=== PATIENT | female | born 1940 | race Caucasian/White ===

== ENCOUNTER → 2019-08-28 05:27 | Day surgery (SDC) | payer BC ==
--- NOTE | 2019-08-16 12:15 | HP ---
CC: Dr. Martine Godfrey * PREOPERATIVE HISTORY AND PHYSICAL: DATE OF ADMISSION/SURGERY: This patient is scheduled for same-day surgery admission by Dr. Christine on 08/28/19. DATE OF PREOPERATIVE HISTORY AND PHYSICAL EXAMINATION: 08/16/19. ATTENDING SURGEON: Dr. Pa Christine * (dictated by Yulia Castrejon NP). CHIEF COMPLAINT: Right upper quadrant pain. HISTORY OF PRESENT ILLNESS: The patient is a 79-year-old female who presented for evaluation by Dr. Christine after undergoing an ultrasound that revealed cholelithiasis without evidence of cholecystitis. The patient initially came in to see Dr. 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 She was experiencing intermittent right upper quadrant twinges of pain and Dr. Christine did not think the hernia was likely to be the cause of her symptoms, so biliary disease was considered and the ultrasound report and images were consistent with cholelithiasis without evidence of cholecystitis. Dr. Christine examined the patient and reviewed the above findings with her and discussed symptomatic cholelithiasis and has recommended robotic cholecystectomy. Dr. Christine described the nature of the surgical procedure, the rationale for the procedure, the relevant risks and benefits and today, I reviewed the expected postoperative care and recovery. Today, she is experiencing twinges of subcostal right upper quadrant discomfort, but denies any nausea, tea-colored urine, or change in the color of stools. The patient has had a chance to ask questions and stated that she understands the information and is satisfied with the answers given to her questions. She will sign surgical consent on the day of surgery. PAST MEDICAL HISTORY: Irritable bowel syndrome, osteoporosis, and diverticulosis. PAST SURGICAL HISTORY: Carpal tunnel release; surgery for anal fissure; wisdom teeth extraction; and tubal ligation. MEDICATIONS: 1. Citrucel 1 scoop b.i.d. 2. Aspirin 81 mg p.o. daily, which she will hold for a week before surgery. 3. Vitamin D 1000 units daily. 4. Vitamin C 500 mg daily. ALLERGIES: SULFA, IBUPROFEN, and AUGMENTIN; all have caused nausea and dizziness. FAMILY HISTORY: No known anesthesia complications, bleeding tendencies, or clotting disorders. SOCIAL HISTORY: She is and is a retired teacher. She is a nonsmoker and occasionally drinks alcohol and denies the use of other substances. REVIEW OF SYSTEMS: Constitutional: No fevers, chills, excessive fatigue, or weight loss. General: No previous anesthesia complications, but she states she has a prolonged recovery; no history of deep vein thrombosis or pulmonary embolism; no bleeding tendencies or blood transfusions. EENMT: No significant visual difficulties or problems with hearing. No sore throat or sinus drainage. Endocrine: No diabetes or thyroid disease. Respiratory: No dyspnea on exertion or chronic cough. Cardiovascular: No anginal chest pain, palpitations, or history of myocardial infarction. Gastrointestinal: As described in history of present illness. Genitourinary: No dysuria. Musculoskeletal: Normal strength and tone. Integumentary: No chronic rashes or skin changes. Neurologic: No headache, blurred vision, areas of focal weakness or numbness. Psychiatric: No reported anxiety, depression, or insomnia. PHYSICAL EXAMINATION GENERAL SURVEY: The patient is a 79-year-old female, well developed, well nourished, in no acute distress. VITAL SIGNS: Height 65.5 inches, weight 120 pounds, body mass index 19.7. Blood pressure 122/72, pulse 72 and regular, respiratory rate 14, temperature 97.9 tympanic. HEENT: Anicteric sclerae. NECK: Supple. No cervical lymphadenopathy. LUNGS: Breath sounds bilaterally clear and equal. HEART: Regular rate and rhythm. No murmurs or rubs appreciated. ABDOMEN: Active bowel sounds. Soft and nondistended. Very mild tenderness in the epigastric region and right upper quadrant. Negative Patiño sign. No obvious masses, organomegaly, or evidence of umbilical hernia. BACK: No CVA tenderness. PELVIC: Exam deferred. RECTAL: Exam deferred. EXTREMITIES: Warm without edema or skin ulceration. NEUROLOGIC: Alert and oriented x3. Steady gait. SKIN: Warm, dry, intact. No jaundice. IMPRESSION: Symptomatic cholelithiasis. PLAN: Same-day surgery admission to Dr. Christine's service on 08/28/19 , for robotic cholecystectomy. MAT CASTREJON NP [id number]/[facility] #: [id number] [facility] CENTERMichael
[~2019-08-28 05:27] MED LIST: Acetaminophen IV 1GM/100ML * 1,000 MG/100 ML VIAL IVPB ONE; Acetaminophen IV 1GM/100ML * 100 ML ONE; Buffered Lidocaine 1% SYRIN* 1 ML/SYRINGE INTRADERM ONE; Bupivacaine 0.5% W/EPI SDV* 10 ML VIAL INJ ONE; Clindamycin 900 MG/D5W BAG(*) 900 MG/50 ML BAG IVPB ONE; Dexamethasone IV* 4 MG/ML 1 ML (4 MG) ONE; Famotidine IV* 10 MG/ML 2 ML (20 mg) IV ONE; Famotidine IV* 10 MG/ML 2 ML (20 mg) ONE; Ketorolac INJ* 30 MG/ML 1 ML VIAL ONE; Lactated Ringers 1000 ML Bag* 1,000 ML IV SCH; Lidocaine 2% PF * 5 ML VIAL ONE; Midazolam* 1 MG/ML 5 ML VIAL (5 MG) ONE; Naloxone* 0.4 MG/ML 1 ML VIAL IV PRN; Ondansetron INJ* 2 MG/ML VIAL IV PRN; Ondansetron INJ* 2 MG/ML VIAL ONE; Phenylephrine 10 MG/ML VIAL* 1 ML VIAL ONE; Propofol* 10 MG/ML 20 ML BTL ONE; Rocuronium* 10 MG/ML VIAL ONE; Sugammadex * 200 MG/2 ML VIAL IV PUSH ONE; fentaNYL* 50 MCG/ML 2 ML VIAL (100 MCG VIAL) IV PRN; fentaNYL* 50 MCG/ML 2 ML VIAL (100 MCG VIAL) ONE
--- NOTE | 2019-08-28 08:59 | OP ---
Operative Report - Blank - Operative Report Date of Operation: 08/28/19 Note: Pre-OP Diagnoses: chronic cholecystitis Post-op Diagnosis: same Procedure: Robotic cholecystectomy Surgeon: Nanci Perez: Elton Anethesia: NAGI EBL: minimal IVF: minimal Specimen: gallbladder Drains: none
[2019-08-28 10:32] VITALS: BP 121/68
--- NOTE | 2019-08-28 22:49 | OP ---
CC: Martine Godfrey MD; [facility] * DATE OF OPERATION: 08/28/19 - [facility] DATE OF : 44 SURGEON: Pa Christine MD METAL CONTAINER MAKER: DUSTIN Mathews ANESTHESIOLOGIST: Dr. Sims. ANESTHESIA: General. PRE-OP DIAGNOSIS: Chronic cholecystitis. POST-OP DIAGNOSIS: Chronic cholecystitis. OPERATIVE PROCEDURE: Laparoscopic cholecystectomy. ESTIMATED BLOOD LOSS: Minimal. FLUIDS: Minimal crystalloid fluids given. SPECIMENS: Gallbladder. DRAINS: None. DESCRIPTION OF PROCEDURE: The patient is identified in the preoperative area, consent was signed. I discussed the robotic cholecystectomy with her again and she agreed to proceed. She was taken to the operating room and placed on the operating table in supine position. Preoperative antibiotics were given. Sequential devices were placed on bilateral lower extremities. General anesthesia was induced. The patient's abdomen was prepped and draped in a standard surgical fashion. A time- out was performed. Folds in the umbilicus were elevated anteriorly and a Veress needle inserted into the abdominal cavity, which was then allowed to insufflate to a pressure of 15 mmHg. The patient tolerated the insufflation well. A right upper quadrant 8 mm robotic trocar was then inserted blindly and laparoscope was inserted through this and there was no evidence of injury from the trocar insertion or from the Veress needle, which was the removed. Additional trocars were then placed along the lower abdomen under direct vision, 3 additional 8 mm trocars in all. The robot was docked as the patient was placed in a head up, right side up position. The gallbladder was targeted and with all arms docked and instruments placed under vision, I proceeded to the console. With retraction of the fundus of the gallbladder anteriorly, adhesions to lesser omentum were taken down with cautery and with cutting on a hook cautery device. This allowed us to see the infundibular region of the gallbladder. With Firefly, we could identify cystic duct and common bile duct. The infundibular region was grasped and retracted towards the right lower quadrant exposing the Calot's triangle. The Calot's node was then dissected free and placed posteriorly. The cystic duct and the cystic artery were isolated. They were both doubly clipped and then ligated. We attempted ligation of the cystic duct with cut on the cautery and this led to some heat transfer to the proximal clips and so an additional proximal medium large clip was placed in good healthy tissue on the cystic duct. Gallbladder was then removed off the liver bed and placed in an endoscopic retrieval bag. The robot was undocked and we removed the specimen with the endoscopic retrieval bag through the right upper quadrant port site after dilating this port somewhat. The abdomen was allowed to collapse. Trocars were removed and it should be noted that review of the cystic duct stump and cystic artery stump showed no bleeding or bile and Firefly appeared to show no evidence of bile flow consistent duct of Luschka. The fascia at the left upper quadrant port site was reapproximated with a 4-0 Monocryl suture in a simple fashion and all 4 skin incisions were reapproximated with 4-0 Monocryl subcuticular sutures. Steri-Strips and sterile dressing were applied. The patient tolerated the procedure well, was woken up in the OR and transferred to PACU in stable condition. [id number]/[facility] #: [id number] KEN
== END | disposition home or self-care (01) ==
LOC: OR 05:27
PROVIDERS: ATTEND Surgery
DX: K80.10 Calculus of gallbladder with chronic cholecystitis without obstruction (principal); K58.9 Irritable bowel syndrome, unspecified; M81.0 Age-related osteoporosis without current pathological fracture; Z88.6 Allergy status to analgesic agent; Z88.1 Allergy status to other antibiotic agents; Z88.2 Allergy status to sulfonamides; Z98.890 Other specified postprocedural states
CPT/HCPCS: 88304; J1100; J1885; J2250; J2405; J2704; J3010